=== PATIENT | female | born 1985 | race African-American/Black ===

== ENCOUNTER 2022-09-23 15:31 | Emergency (ER) | payer OTHER ==
[~2022-09-23] VITALS: Ht 165.1 cm; Wt 75.0 kg
[~2022-09-23 15:31] MED LIST: ASPI-1406 PO; FOLI-43 PO; FURO40TA5 PO; LACT10SO3 PO; MIDO10TA PO; MULT-379 MT; PANT40TA51 PO; POTA-202 MT; THIA100T72 PO
[2022-09-23 15:39] VITALS: BP 142/92
[2022-09-23 16:42] LABS: BASOPHILS % 1.1 % (0.0-2.0); EOSINOPHILS % 1.1 % (0.0-5.0); HEMATOCRIT. 28.7 % (36.0-48.0); HEMOGLOBIN. 9.5 g/dL (12.0-16.0); LYMPHOCYTES % 22.9 % (20.0-50.0); MEAN CORPUSCULAR HEMOGLOBIN 32.7 pg (28.0-32.0); MEAN CORPUSCULAR VOLUME 98.6 fL (81.0-99.0); MEAN PLATELET VOLUME 7.7 fl (7.4-10.4); MONOCYTES % 7.5 % (2.0-8.0); NEUTROPHILS % 67.4 % (40.0-76.0); PLATELET 227 x1000/uL (130-400); RED BLOOD CELL COUNT 2.91 mill/uL (4.2-5.4); RED CELL DISTRIBUTION WIDTH 18.5 % (11.6-14.6)
[2022-09-23 16:52] LABS: CHLORIDE 104 mEq/L (98-107)
[2022-09-23 17:08] LABS: HCG SCREEN NEGATIVE
[2022-09-23] MEDS ORDERED: ACETAMINOPHEN 325MG TABLET PO ONE (18:45)
[2022-09-27] MEDS ORDERED: FURO40TA5 PO (09:54)
[2022-09-27] MEDS ORDERED: LACT10SO6 PO (09:54)
[2022-09-27] MEDS ORDERED: MIDO10TA PO (09:54)
[2022-09-27] MEDS ORDERED: PANT40TA51 PO (09:54)
[2022-09-27] MEDS ORDERED: NITR100C PO (09:54)
== END 2022-09-23 19:09 | disposition home or self-care (01) ==
LOC: ER 15:31
DX: R18.8 Other ascites (principal); K74.60 Unspecified cirrhosis of liver; F10.229 Alcohol dependence with intoxication, unspecified; I11.0 Hypertensive heart disease with heart failure; I50.9 Heart failure, unspecified; Y90.0 Blood alcohol level of less than 20 mg/100 ml; Z79.899 Other long term (current) drug therapy
CPT/HCPCS: 36415; 80053; 84703; 85025; 99283

== ENCOUNTER 2022-09-25 09:20 | Emergency (ER) | payer OTHER ==
[~2022-09-25] VITALS: Ht 162.6 cm; Wt 56.0 kg
[2022-09-25 09:22] VITALS: BP 100/65
[2022-09-25 10:00] LABS: BASOPHILS % 0.7 % (0.0-2.0); EOSINOPHILS % 1.1 % (0.0-5.0); HEMATOCRIT. 26.4 % (36.0-48.0); HEMOGLOBIN. 8.8 g/dL (12.0-16.0); LYMPHOCYTES % 21.5 % (20.0-50.0); MEAN CORPUSCULAR HEMOGLOBIN 32.9 pg (28.0-32.0); MEAN PLATELET VOLUME 7.3 fl (7.4-10.4); MONOCYTES % 9.2 % (2.0-8.0); NEUTROPHILS % 67.5 % (40.0-76.0); PLATELET 211 x1000/uL (130-400); RED BLOOD CELL COUNT 2.67 mill/uL (4.2-5.4); RED CELL DISTRIBUTION WIDTH 18.9 % (11.6-14.6)
[2022-09-25 10:09] LABS: CHLORIDE 105 mEq/L (98-107)
[2022-09-25 10:14] LABS: INR 1.8; PROTHROMBIN TIME 18.3 sec (9.6-11.0)
[2022-09-25 10:24] LABS: HCG SCREEN NEGATIVE
[2022-09-25] MEDS ORDERED: LIDOCAINE HCL 1% 10 MG/ML 10ML VIAL ONE (10:42)
[2022-09-25] MEDS ORDERED: SODIUM BICARBONATE 4% (2.4MEQ) 5ML VIAL IV ONE (10:43)
[2022-09-25 14:46] LABS: CLARITY URINE CLOUDY (CLEAR); COLOR URINE DARK YELLOW (YELLOW); KETONES URINE TRACE (NEGATIVE); LEUKOCYTE ESTERASE URINE 2+ (NEGATIVE); NITRITE URINE POSITIVE (NEGATIVE); OCCULT BLOOD URINE NEGATIVE (NEGATIVE); PH URINE 5.5 (4.5-8.0); PROTEIN URINE NEGATIVE (NEGATIVE); SPECIFIC GRAVITY URINE 1.024 (1.005-1.030)
[2022-09-27] MEDS ORDERED: FURO40TA5 PO (09:54)
[2022-09-27] MEDS ORDERED: NITR100C PO (09:54)
[2022-09-27] MEDS ORDERED: LACT10SO6 PO (09:54)
[2022-09-27] MEDS ORDERED: MIDO10TA PO (09:54)
[2022-09-27] MEDS ORDERED: PANT40TA51 PO (09:54)
== END 2022-09-25 14:07 | disposition home or self-care (01) ==
LOC: ER 09:20
DX: R18.8 Other ascites (principal); I11.0 Hypertensive heart disease with heart failure; I50.9 Heart failure, unspecified; Z20.822 Contact with and (suspected) exposure to COVID-19; Z79.899 Other long term (current) drug therapy
CPT/HCPCS: 36415; 49083; 80053; 81003; 83690; 84703; 85025; 85610; 87070; 87075; 87086; 87205; 87426; 88108; 89050; 93005; 99285; C9803; J3490; Z7610

== ENCOUNTER 2022-10-11 11:40 | Inpatient (IN) | payer OTHER ==
[~2022-10-11] VITALS: Ht 162.6 cm; Wt 55.6 kg
[~2022-10-11 11:40] MED LIST changes: +FURO-151 MT; -LACT10SO3 PO; +LACT10SO6 PO; +NITR100C PO; +SPIR50TA5 MT
[2022-10-11 12:11] LABS: BASOPHILS % 1.6 % (0.0-2.0); EOSINOPHILS % 1.4 % (0.0-5.0); HEMATOCRIT. 26.5 % (36.0-48.0); HEMOGLOBIN. 8.7 g/dL (12.0-16.0); LYMPHOCYTES % 20.1 % (20.0-50.0); MEAN CORPUSCULAR HEMOGLOBIN 32.6 pg (28.0-32.0); MEAN CORPUSCULAR VOLUME 99.6 fL (81.0-99.0); MEAN PLATELET VOLUME 6.7 fl (7.4-10.4); MONOCYTES % 10.7 % (2.0-8.0); NEUTROPHILS % 66.2 % (40.0-76.0); PLATELET 229 x1000/uL (130-400); RED BLOOD CELL COUNT 2.66 mill/uL (4.2-5.4); RED CELL DISTRIBUTION WIDTH 20.5 % (11.6-14.6)
[2022-10-11 12:22] LABS: CHLORIDE 107 mEq/L (98-107)
[2022-10-11] MEDS ORDERED: CALCIUM GLUCONATE 1GM PREMIX 50 ML IV ONE (13:30)
[2022-10-11 14:18] LABS: INR 1.6; PROTHROMBIN TIME 16.4 sec (9.6-11.0)
[2022-10-11] MEDS ORDERED: LIDOCAINE HCL 1% 10 MG/ML 10ML VIAL ONE (14:32)
[2022-10-11] MEDS ORDERED: SODIUM BICARBONATE 4% (2.4MEQ) 5ML VIAL IV ONE (14:32)
[2022-10-11] MEDS ORDERED: CEFTRIAXONE 1GM PREMIX 50 ML IV ONE (15:00)
[2022-10-11 15:20] LABS: CLARITY URINE CLEAR (CLEAR); COLOR URINE YELLOW (YELLOW); KETONES URINE NEGATIVE (NEGATIVE); LEUKOCYTE ESTERASE URINE TRACE (NEGATIVE); NITRITE URINE NEGATIVE (NEGATIVE); OCCULT BLOOD URINE NEGATIVE (NEGATIVE); PH URINE 6.5 (4.5-8.0); PROTEIN URINE NEGATIVE (NEGATIVE); SPECIFIC GRAVITY URINE 1.009 (1.005-1.030)
[2022-10-11] MEDS ORDERED: MORPHINE SULFATE 2 MG/ML CPJ (NOT FOR IM USE) IV ONE (17:45)
[2022-10-12] MEDS ORDERED: HYDROCODONE/ACETAMINOPHEN 5/325MG TABLET PO PRN (01:15)
[2022-10-12 02:00] VITALS: BP 112/72
[2022-10-12 03:56] VITALS: BP 112/72
[2022-10-12 04:00] VITALS: BP 108/58
[2022-10-12 08:00] VITALS: BP 107/63
[2022-10-12] MEDS ORDERED: FUROSEMIDE 40MG TABLET PO SCH (09:00)
[2022-10-12] MEDS ORDERED: RIFAXIMIN 550 MG TABLET PO SCH (09:00)
[2022-10-12] MEDS ORDERED: LACTULOSE 20G/30ML UDC PO SCH (09:00)
[2022-10-12] MEDS ORDERED: FOLIC ACID 1MG TABLET PO SCH (09:00)
[2022-10-12] MEDS ORDERED: SPIRONOLACTONE 50MG TABLET PO SCH (09:00)
[2022-10-12] MEDS ORDERED: PROPRANOLOL HCL 10MG TABLET PO SCH (09:00)
[2022-10-12 12:00] VITALS: BP 94/47
[2022-10-12 15:23] VITALS: BP 94/47
== END 2022-10-12 15:35 | disposition home or self-care (01) | DRG 280 ==
LOC: ER 11:40 → MICUSO 17:32 → ENRESERV 22:48 → 8WST 10-12 00:12
PROVIDERS: ADMIT Internal Medicine; ATTEND Internal Medicine
PROC: 0W9G3ZZ Drainage of Peritoneal Cavity, Percutaneous Approach (ICD-10-PCS; principal; 2022-10-12)
DX: K70.31 Alcoholic cirrhosis of liver with ascites (principal); E43 Unspecified severe protein-calorie malnutrition; D68.9 Coagulation defect, unspecified; D64.9 Anemia, unspecified; F10.20 Alcohol dependence, uncomplicated; I50.9 Heart failure, unspecified; I11.0 Hypertensive heart disease with heart failure; Z20.822 Contact with and (suspected) exposure to COVID-19; Z68.21 Body mass index [BMI] 21.0-21.9, adult
CPT/HCPCS: 36415; 49083; 71045; 80053; 81003; 83880; 84484; 85025; 87426; 99285; C1893; C9803; J0610; J0696; J2270; J3490

== ENCOUNTER 2022-10-18 05:48 | Emergency (ER) | payer MEDICAID, OTHER ==
[~2022-10-18] VITALS: Ht 162.6 cm; Wt 55.0 kg
[~2022-10-18 05:48] MED LIST changes: -ASPI-1406 PO; -FOLI-43 PO; -MIDO10TA PO; -MULT-379 MT; -NITR100C PO; -POTA-202 MT; -THIA100T72 PO
[2022-10-18 10:06] LABS: BASOPHILS % 1.3 % (0.0-2.0); EOSINOPHILS % 0.8 % (0.0-5.0); HEMATOCRIT. 28.4 % (36.0-48.0); HEMOGLOBIN. 9.2 g/dL (12.0-16.0); MEAN CORPUSCULAR HEMOGLOBIN 32.8 pg (28.0-32.0); MEAN CORPUSCULAR VOLUME 101.1 fL (81.0-99.0); MEAN PLATELET VOLUME 7.3 fl (7.4-10.4); MONOCYTES % 7.9 % (2.0-8.0); PLATELET 243 x1000/uL (130-400); RED BLOOD CELL COUNT 2.81 mill/uL (4.2-5.4)
[2022-10-18 10:10] LABS: CHLORIDE 105 mEq/L (98-107)
[2022-10-18] MEDS ORDERED: LIDOCAINE 5% PATCH TOP ONE (11:00)
[2022-10-18 12:46] LABS: INR 1.5; PARTIAL THROMBOPLASTIN TIME 30.8 sec (23.4-31.0); PROTHROMBIN TIME 16.1 sec (9.6-11.0)
[2022-10-18] MEDS ORDERED: SODIUM BICARBONATE 4% (2.4MEQ) 5ML VIAL IV ONE (13:18)
[2022-10-18] MEDS ORDERED: LIDOCAINE HCL 1% 10 MG/ML 10ML VIAL ONE (13:19)
[2022-10-18] MEDS ORDERED: LACT10SO6 MT (13:43)
[2022-10-18] MEDS ORDERED: PANT40TA51 MT (13:43)
[2022-10-18] MEDS ORDERED: SPIR25TA6 MT (13:43)
[2022-10-18] MEDS ORDERED: LIDO700A15 TP (13:46)
[2022-10-18 14:51] VITALS: BP 134/72
== END 2022-10-18 14:52 | disposition home or self-care (01) ==
LOC: ER 06:02
DX: K74.60 Unspecified cirrhosis of liver (principal); Z79.899 Other long term (current) drug therapy; Z00.00 Encounter for general adult medical examination without abnormal findings; Z20.822 Contact with and (suspected) exposure to COVID-19
CPT/HCPCS: 36415; 49083; 80053; 81025; 85025; 85610; 85730; 87426; 99285; C9803; J3490; Z7610